=== PATIENT | male | born 1940 | race Two or more races ===

== ENCOUNTER 2021-08-27 09:54 | Outpatient (CLI) | payer OTHER ==
[~2021-08-27 09:54] MED LIST: ASPIRIN1 GM; AVAPRO75 MG; LIPITOR20 MG; METOPROLOL SUCC25 MG; OMEPRAZOLE10 MG
== END 2021-08-27 09:58 | disposition home or self-care (01) ==
LOC: RAD 09:54
PROVIDERS: ATTEND Ophthalmology
DX: Z98.41 Cataract extraction status, right eye (principal); H25.011 Cortical age-related cataract, right eye

== ENCOUNTER 2023-04-06 09:55 | Outpatient (CLI) | payer OTHER | END 2023-04-06 09:59 | disposition home or self-care (01) | LOC: RAD 09:55 | DX: E78.00 Pure hypercholesterolemia, unspecified (principal); I13.0 Hypertensive heart and chronic kidney disease with heart failure and stage 1 through stage 4 chronic kidney disease, or unspecified chronic kidney disease ==